=== PATIENT | male | born 1995 | race Caucasian/White ===

== ENCOUNTER 2017-08-24 11:51 | Emergency (ER) | payer OTHER ==
[2017-08-24] MEDS ORDERED: DEXAMETHASONE 10 MG/ML VIAL ONE (13:24)
[2017-08-24 13:34] LABS: Absolute Lymphocytes (CBC) 2.3 K/uL (0.7-4.9); Absolute Monocytes 0.9 K/uL (0.1-1.3); Absolute Neutrophil 8.8 K/uL (1.8-8.0); Basophils % 0.4 % (0-1.3); Eosinophils % 2.9 % (0-4.4); Hematocrit 45.3 % (39.6-49.0); Lymphocytes % 18.5 % (15.3-44.8); MCH 27.5 pg (27.0-35.0); MCV 83.3 fL (80-100); MPV 8.1 fL (7.6-11.3); Monocytes % 7.3 % (3.3-12.3); RBC Red Blood Cell Count 5.44 M/uL (4.33-5.43)
[2017-08-24 14:03] LABS: Potassium 3.8 mEq/L (3.6-5.0)
--- NOTE | 2017-08-24 15:19 | ER ---
Nurse's Notes [facility] Name: Jan Ray Age: 22 yrs Sex: Male : 1995 Arrival Date: 08/24/2017 Time: 11:54 Bed 28 Private MD: None, None Diagnosis: Acute tonsillitis Presentation: 08/24 12:02 Presenting complaint: Patient states: Sore throat with swollen tonsils for 1 week. aj Transition of care: patient was not received from another setting of care. Onset of symptoms was August 17, 2017. Care prior to arrival: None. 12:02 Method Of Arrival: Ambulatory aj 12:02 Acuity: MULUGETA 4 aj 14:03 Risk Assessment: Do you want to hurt yourself or someone else? Patient reports no kr2 desire to harm self or others. Initial Sepsis Screen: Does the patient meet any 2 criteria? No. Patient's initial sepsis screen is negative. Does the patient have a suspected source of infection? No. Patient's initial sepsis screen is negative. Triage Assessment: 12:02 General: Appears in no apparent distress. comfortable, Behavior is calm, cooperative, aj appropriate for age. Pain: Complains of pain in left aspect of posterior pharynx and right aspect of posterior pharynx. EENT: Reports pain when swallowing. EENT: Throat has enlarged tonsils bilaterally. Respiratory: Airway is patent Respiratory effort is even, unlabored, Respiratory pattern is regular, symmetrical. Derm: Skin is intact, is healthy with good turgor, Skin is pink, warm \T\ dry. normal. Historical: - Allergies: 12:02 No Known Allergies; aj - Home Meds: 12:02 None [Active]; aj - PMHx: 12:02 None; aj - PSHx: 12:02 None; aj - Immunization history:: Adult Immunizations up to date. - Social history:: Smoking status: Patient/guardian denies using tobacco. - Ebola Screening: : Patient negative for fever greater than or equal to 101.5 degrees Fahrenheit, and additional compatible Ebola Virus Disease symptoms Patient denies exposure to infectious person Patient denies travel to an Ebola-affected area in the 21 days before illness onset No symptoms or risks identified at this time. Screenin:00 Abuse screen: Denies threats or abuse. Denies injuries from another. Nutritional kr2 screening: No deficits noted. Tuberculosis screening: No symptoms or risk factors identified. Fall Risk None identified. Assessment: 13:00 General: Appears in no apparent distress. comfortable, well groomed, well developed, kr2 well nourished, Behavior is calm, cooperative, appropriate for age. Pain: Complains of pain in throat Pain does not radiate. Pain currently is 8 out of 10 on a pain scale. Quality of pain is described as aching, tender, Is continuous, Alleviated by nothing. Aggravated by eating, drinking. Neuro: Level of Consciousness is awake, alert, obeys commands, Oriented to person, place, time, situation. Cardiovascular: Capillary refill < 3 seconds in bilateral fingers Patient's skin is warm and dry. Respiratory: Airway is patent Respiratory effort is even, unlabored, Respiratory pattern is regular, symmetrical. GI: Abdomen is round non-distended. : Denies pain. EENT: Nares are clear bilaterally Oral mucosa is moist. Throat is reddened has enlarged tonsils with gag reflex present. Derm: Skin is intact, is healthy with good turgor, Skin is pink, warm \T\ dry. Musculoskeletal: Circulation, motion, and sensation intact. 14:04 Reassessment: Patient appears in no apparent distress at this time. Patient and/or kr2 family updated on plan of care and expected duration. Pain level reassessed. Patient is alert, oriented x 3, equal unlabored respirations, skin warm/dry/pink. 15:38 Reassessment: No changes from previously documented assessment. Patient states feeling rs2 better. Vital Signs: 12:02 BP 141 / 82; Pulse 84; Resp 17; Temp 98.2; Pulse Ox 98% on R/A; Weight 113.4 kg; Height aj 5 ft. 10 in. (177.80 cm); Pain 8/10; 14:16 BP 131 / 75; Pulse 89; Resp 18; Pulse Ox 97% on R/A; kr2 15:44 BP 123 / 79; Pulse 90; Resp 16; Pulse Ox 100% ; kr2 12:02 Body Mass Index 35.87 (113.40 kg, 177.80 cm) aj ED Course: 11:54 Patient arrived in ED. sb2 11:55 None, None is Private Physician. sb2 12:02 Triage completed. aj 12:02 Arm band placed on left wrist. Patient placed in waiting room. aj 12:37 Donnell Burkett PA is PHCP. cp 12:37 Jerry Patino MD is Attending Physician. cp 12:38 Deborah Zuñiga, BRIGITTE is Primary Nurse. jl7 13:20 Missed attempt(s): 20 gauge in right antecubital area. Bleeding controlled, band aid kr2 applied, catheter tip intact. 13:22 Yomaira To, RN is Primary Nurse. kr2 13:25 Initial lab(s) drawn, by me, sent to lab. Strep swab sent to lab. Inserted saline lock: kr2 24 gauge in right antecubital area, using aseptic technique. Blood collected. 14:03 Patient has correct armband on for positive identification. Bed in low position. Call kr2 light in reach. Side rails up X2. Pulse ox on. NIBP on. Door closed. Warm blanket given. Head of bed elevated. 15:18 Esther Garsia MD is Referral Physician. cp 15:45 No provider procedures requiring assistance completed. IV discontinued, intact, kr2 bleeding controlled, No redness/swelling at site. Pressure dressing applied. Administered Medications: 13:28 Drug: Decadron - Dexamethasone 10 mg Route: IVP; Site: right antecubital; kr2 14:12 Follow up: Response: No adverse reaction kr2 15:38 Follow up: Response: No adverse reaction; Pain is decreased rs2 15:40 Drug: Rocephin - (cefTRIAXone) 1 grams Route: IVPB; Infused Over: 30 mins; Site: right kr2 antecubital; 15:46 Follow up: Response: No adverse reaction; IV Status: Completed infusion kr2 Outcome: 15:19 Discharge ordered by MD. cp 15:45 Discharged to home ambulatory, with family. kr2 15:45 Condition: good 15:45 Discharge instructions given to patient, family, Instructed on discharge instructions, follow up and referral plans. medication usage, Demonstrated understanding of instructions, follow-up care, medications, Prescriptions given X 2. 15:46 Patient left the ED. kr2 Signatures: Cindy Neumann RN Donnell Sewell PA PA cp Deborah Zuñiga, RN RN jl7 José Miguel, Zabrina rs2 Yomaira To RN RN kr2 Laurel Parson sb2
--- NOTE | 2017-08-24 15:20 | EDPHYS ---
Physician Documentation [facility] Name: Jan Ray Age: 22 yrs Sex: Male : 1995 Arrival Date: 08/24/2017 Time: 11:54 Bed 28 Private MD: None, None ED Physician Jerry Patino HPI: 08/24 13:00 This 22 yrs old Male presents to ER via Ambulatory with complaints of Swollen cp Glands. 13:00 The patient presents with sore throat, dysphagia, of both solids and liquids. cp 13:00 Onset: The symptoms/episode began/occurred 1 week(s) ago. Severity of symptoms: in the emergency department the symptoms are unchanged, despite home interventions. Associated signs and symptoms: Pertinent negatives cough, earache, fever, vomiting. Historical: - Allergies: 12:02 No Known Allergies; aj - Home Meds: 12:02 None [Active]; aj - PMHx: 12:02 None; aj - PSHx: 12:02 None; aj - Immunization history:: Adult Immunizations up to date. - Social history:: Smoking status: Patient/guardian denies using tobacco. - Ebola Screening: : Patient negative for fever greater than or equal to 101.5 degrees Fahrenheit, and additional compatible Ebola Virus Disease symptoms Patient denies exposure to infectious person Patient denies travel to an Ebola-affected area in the 21 days before illness onset No symptoms or risks identified at this time. ROS: 13:10 Constitutional: Negative for body aches, chills, fever, poor PO intake. cp 13:10 Eyes: Negative for injury, pain, redness, and discharge. cp 13:10 ENT: Positive for difficulty swallowing, sore throat, Negative for drainage from ear(s), ear pain, rhinorrhea, sinus congestion, difficulty handling secretions. 13:10 Neck: Positive for swollen nodes, Negative for pain with movement, pain at rest, stiffness, tenderness, bony tenderness. 13:10 Cardiovascular: Negative for chest pain. 13:10 Respiratory: Negative for cough, shortness of breath, wheezing. 13:10 Abdomen/GI: Negative for abdominal pain, nausea, vomiting, and diarrhea. 13:10 Skin: Negative for cellulitis, rash. 13:10 Neuro: Negative for altered mental status, headache, weakness. 13:10 All other systems are negative. Exam: 13:18 Constitutional: The patient appears in no acute distress, alert, awake, non-toxic, well cp developed, well nourished. 13:18 Head/Face: Normocephalic, atraumatic. cp 13:18 Eyes: Periorbital structures: appear normal, Pupils: equal, round, and reactive to light and accomodation, Extraocular movements: intact throughout, Conjunctiva: normal, no exudate, no injection, Sclera: no appreciated abnormality, Lids and lashes: appear normal, bilaterally. 13:18 ENT: External ear(s): are unremarkable, Ear canal(s): are normal, clear, TM's: bulging, is not appreciated, bilaterally, dullness, bilaterally, erythema, is not appreciated, bilaterally, Nose: is normal, Mouth: Lips: moist, Oral mucosa: moist, Posterior pharynx: Airway: no evidence of obstruction, patent, Tonsils: bilaterally enlarged, with erythema, with exudate, Uvula: midline, non-edematous, no erythema, swelling, is not appreciated, erythema, that is mild, Voice: is normal. 13:18 Neck: ROM/movement: is normal, is supple, without pain, no range of motions limitations, no meningismus, no nuchal rigidity, Lymph nodes: lymphadenopathy is appreciated, anterior cervical nodes. 13:18 Chest/axilla: Inspection: normal, Palpation: is normal, no crepitus, no tenderness. 13:18 Cardiovascular: Rate: normal, Rhythm: regular, Edema: is not appreciated, JVD: is not appreciated. 13:18 Respiratory: the patient does not display signs of respiratory distress, Respirations: normal, no use of accessory muscles, no retractions, no splinting, no tachypnea, labored breathing, is not present, Breath sounds: are clear throughout, no decreased breath sounds, no stridor, no wheezing. 13:18 Abdomen/GI: Inspection: abdomen appears normal, Palpation: abdomen is soft and non-tender, in all quadrants, rebound tenderness, is not appreciated, voluntary guarding, is not appreciated, involuntary guarding, is not appreciated. Vital Signs: 12:02 BP 141 / 82; Pulse 84; Resp 17; Temp 98.2; Pulse Ox 98% on R/A; Weight 113.4 kg; Height aj 5 ft. 10 in. (177.80 cm); Pain 8/10; 14:16 BP 131 / 75; Pulse 89; Resp 18; Pulse Ox 97% on R/A; kr2 15:44 BP 123 / 79; Pulse 90; Resp 16; Pulse Ox 100% ; kr2 12:02 Body Mass Index 35.87 (113.40 kg, 177.80 cm) aj MDM: 12:37 Patient medically screened. cp 15:15 Data reviewed: vital signs, nurses notes, lab test result(s), and as a result, I will cp discharge patient. 15:15 Counseling: I had a detailed discussion with the patient and/or guardian regarding: the cp historical points, exam findings, and any diagnostic results supporting the discharge/admit diagnosis, lab results, the need for outpatient follow up, an ENT specialist, to return to the emergency department if symptoms worsen or persist or if there are any questions or concerns that arise at home. 08/24 12:57 Order name: CBC with Diff; Complete Time: 14:11 cp 08/24 14:11 Interpretation: Normal except: WBC 12.4; RBC 5.44. cp 08/24 12:57 Order name: BMP; Complete Time: 14:11 cp 08/24 14:11 Interpretation: Normal except: GFR 81. cp 08/24 12:57 Order name: [place] Screen Profile; Complete Time: 14:33 cp 08/24 14:33 Interpretation: Reviewed. cp 08/24 12:57 Order name: Strep; Complete Time: 14:11 cp 08/24 14:12 Interpretation: Reviewed. cp 08/24 14:12 Order name: Throat Culture EDMS 08/24 12:57 Order name: IV; Complete Time: 13:23 cp Administered Medications: 13:28 Drug: Decadron - Dexamethasone 10 mg Route: IVP; Site: right antecubital; kr2 14:12 Follow up: Response: No adverse reaction kr2 15:38 Follow up: Response: No adverse reaction; Pain is decreased rs2 15:40 Drug: Rocephin - (cefTRIAXone) 1 grams Route: IVPB; Infused Over: 30 mins; Site: right kr2 antecubital; 15:46 Follow up: Response: No adverse reaction; IV Status: Completed infusion kr2 Disposition: 17:29 Co-signature as Attending Physician, Jerry Patino MD. rn Disposition: 08/24/17 15:19 Discharged to Home. Impression: Acute tonsillitis. - Condition is Stable. - Discharge Instructions: Tonsillitis. - Prescriptions for prednisone 50 mg Oral tablet - take 1 tablet by ORAL route once daily for 5 days; 5 tablet. Augmentin 875- 125 mg Oral Tablet - take 1 tablet by ORAL route every 12 hours for 10 days; 20 tablet. - Medication Reconciliation Form, Thank You Letter, Antibiotic Education, Prescription Opioid Use, Work release form form. - Follow up: Esther Garsia MD; When: 2 - 3 days; Reason: Recheck today's complaints. - Problem is new. - Symptoms have improved. Signatures: Dispatcher [employer] EDCindy Perez RN RN Jerry Quiles MD MD rn Page, Corey, PA PA cp Reaves, Karey, RN RN kr2 Zabrina Valdez2 Corrections: (The following items were deleted from the chart) 15:46 15:19 08/24/2017 15:19 Discharged to Home. Impression: Acute tonsillitis. Condition is kr2 Stable. Forms are Medication Reconciliation Form, Thank You Letter, Antibiotic Education, Prescription Opioid Use. Follow up: Esther Garsia; When: 2 - 3 days; Reason: Recheck today's complaints. Problem is new. Symptoms have improved. cp
[2017-08-24] MEDS ORDERED: CEFTRIAXONE/SWI 1gm 1 GM/10 ML SYR ONE (15:37)
== END 2017-08-24 15:46 | disposition home or self-care (01) ==
LOC: ER 11:51
DX: J03.90 Acute tonsillitis, unspecified (principal)
CPT/HCPCS: 36415; 80048; 85025; 86308; 87070; 87081; 96374; 96375; 99284; J0696; J1100